=== PATIENT | female | born 1965 | race Hispanic/Latino ===

== ENCOUNTER 2018-01-28 12:34 | Emergency (ER) | payer OTHER ==
[2018-01-28] MEDS: IBUPROFEN 800 MG TAB PO (13:45)
[2018-01-28] MEDS: NORCO, ANEXSIA 5/325MG TABLET (HYDROcodone/ACETAMINOPHEN) PO (13:46)
[2018-01-28] MEDS: METHOCARBAMOL 500 MG TAB PO (13:46)
== END 2018-01-28 14:49 | disposition home or self-care (01) ==
LOC: M ED 12:34
DX: M54.42 Lumbago with sciatica, left side (principal)
CPT/HCPCS: 72110

== ENCOUNTER 2018-03-18 12:29 | Outpatient (RCR) | payer BC, OTHER | END 2018-03-28 | LOC: M PT 03-24 12:30 | DX: Z47.89 Encounter for other orthopedic aftercare (principal); M51.36 Other intervertebral disc degeneration, lumbar region; M47.26 Other spondylosis with radiculopathy, lumbar region; M54.32 Sciatica, left side | CPT/HCPCS: 97010 ==

== ENCOUNTER 2018-04-02 12:57 | Outpatient (RCR) | payer BC, OTHER | END 2018-04-27 | LOC: M PT 12:57 | DX: Z47.89 Encounter for other orthopedic aftercare (principal); M51.36 Other intervertebral disc degeneration, lumbar region; M54.32 Sciatica, left side; M47.26 Other spondylosis with radiculopathy, lumbar region | CPT/HCPCS: 97010 ==

== ENCOUNTER → 2018-06-12 | Outpatient (CLI) | payer OTHER | LOC: M RAD 15:06 | DX: M51.26 Other intervertebral disc displacement, lumbar region (principal); M48.061 Spinal stenosis, lumbar region without neurogenic claudication | CPT/HCPCS: 72148 ==

== ENCOUNTER 2018-10-15 11:59 | Emergency (ER) | payer OTHER ==
[~2018-10-15] VITALS: Ht 152.4 cm; Wt 61.4 kg
[~2018-10-15 11:59] MED LIST: IBUP80TA PO; LEVO50TA5 PO; NORCOTAB PO; ROBA500T PO
[2018-10-15 12:54] LABS: BASO % 0.3 % (0.0-1.0); EOS # 0.4 10^3/uL (0.0-0.50); EOS % 6.2 % (0.0-3.0); HEMOGLOBIN 11.9 g/dl (12.0-15.5); LYMPH # 1.8 10^3/uL (1.5-4.5); LYMPH % 30.9 % (24.0-44.0); MEAN CORPUSCULAR HEMOGLOBIN 31.2 pg (27.0-33.0); MEAN CORPUSCULAR HGB CONC 32.2 g/dl (32.0-36.5); MEAN CORPUSCULAR VOLUME 96.9 fl (80.0-96.0); MONO # 0.3 10^3/uL (0.0-0.8); MONO % 5.7 % (0.0-5.0); NEUTROPHILS # 3.4 10^3/uL (1.8-7.7); NEUTROPHILS % 56.7 % (36.0-66.0); PLATELET COUNT, AUTOMATED 352 10^3/uL (150-450); RED BLOOD COUNT 3.82 10^6/uL (4.00-5.40)
[2018-10-15] MEDS ORDERED: ACETAMINOPHEN 500 MG TAB PO ONE (13:00)
[2018-10-15 13:04] LABS: INR 1.05; PROTHROMBIN TIME 13.8 SECONDS (12.1-14.4)
[2018-10-15] MEDS ORDERED: LEVALBUTEROL 1.25 MG/0.5 ML CONCENTRATE NEB NEB ONE (13:15)
[2018-10-15 13:25] LABS: ALBUMIN 4.4 GM/DL (3.2-5.2); ALT/SGPT 21 U/L (12-78); BILIRUBIN,TOTAL 0.5 MG/DL (0.2-1.0); BLOOD UREA NITROGEN 16 MG/DL (7-18); CALCIUM LEVEL 9.1 MG/DL (8.5-10.1); CARBON DIOXIDE LEVEL 25 MEQ/L (21-32); CHLORIDE LEVEL 108 MEQ/L (98-107); CPK CREATINE PHOSPHOKINASE 370 U/L (26-192); CREATININE FOR GFR 0.95 MG/DL (0.55-1.30); GLOMERULAR FILTRATION RATE > 60.0 (>51); GLUCOSE, FASTING 102 MG/DL (70-100); LIPASE 270 U/L (73-393); MB/CK RELATIVE INDEX 0.81 (< OR =4); POTASSIUM SERUM 3.9 MEQ/L (3.5-5.1); SODIUM LEVEL 140 MEQ/L (136-145); TOTAL PROTEIN 8.5 GM/DL (6.4-8.2); TROPONIN I 0.03 NG/ML (< 0.10)
[2018-10-15 13:39] LABS: INFLUENZA A AMPLIFICATION NEGATIVE (NEGATIVE); INFLUENZA B AMPLIFICATION NEGATIVE (NEGATIVE)
[2018-10-15 13:45] VITALS: BP 124/83
[2018-10-15] MEDS ORDERED: ISOVUE-370 76% 125ML VIAL (Q9967 PER ML) As Ordered ONE (13:49)
[2018-10-15 13:53] LABS: FREE T4 0.86 NG/DL (0.76-1.46)
[2018-10-15] MEDS ORDERED: MEDR4PAK PO (15:18)
[2018-10-15] MEDS ORDERED: ALBU17IN2 INH (15:18)
[2018-10-15] MEDS ORDERED: BACT800T5 PO (15:18)
--- NOTE | 2018-10-15 15:25 | REP ---
CT pulmonary angiogram: With IV contrast. History: Chest pain. Strong family history of pulmonary embolism. Comparison studies: No comparison chest imaging. Contrast dose: 75 mL of Isovue [address] technique: Helical scanning is acquired and overlapping 1.5 mm and contiguous 3 mm axial images are reformatted. In addition, maximum intensity projection and multiplanar re-formation images are generated in sagittal and coronal imaging projections. CT pulmonary angiographic findings: There is good opacification of the pulmonary arterial tree. No filling defect or vessel cutoff is seen to suggest pulmonary embolism. Maximum intensity projection and MPR images show no pulmonary arterial abnormality. The thoracic aorta enhances normally and homogeneously. There is no evidence of aneurysm or dissection. No hilar or mediastinal mass or adenopathy is seen. No pleural or significant pericardial effusion is seen. The lung windows show no evidence of pulmonary mass or significant pulmonary nodule. There are degenerative disc changes in the thoracic spine. No bony destructive lesion is appreciated. The visualized upper abdominal structures are unremarkable. Impression: Negative CT pulmonary angiogram. No CT evidence of pulmonary embolus. Electronically Signed by Jose Roberto Rose MD 10/15/2018 05:24 P
--- NOTE | 2018-10-15 21:26 | ECGEPIP ---
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
== END 2018-10-15 16:03 | disposition home or self-care (01) ==
LOC: M ED 11:59
DX: J20.9 Acute bronchitis, unspecified (principal); E89.0 Postprocedural hypothyroidism; G89.29 Other chronic pain; M54.9 Dorsalgia, unspecified; Z85.850 Personal history of malignant neoplasm of thyroid; Z79.890 Hormone replacement therapy
CPT/HCPCS: 36415; 71275; 80053; 81001; 82550; 82553; 83690; 84439; 84443; 84484; 85025; 85610; 87086; 87502; 93005; 93041; 94640; 94760; 99285; Q9967

== ENCOUNTER 2018-12-03 22:16 | Emergency (ER) | payer BC, OTHER ==
[~2018-12-03] VITALS: Ht 152.4 cm; Wt 65.2 kg
[~2018-12-03 22:16] MED LIST changes: +ALBU17IN2 INH; +BACT800T5 PO; +HYDR-3715 PO; +MEDR4PAK PO; -NORCOTAB PO
[2018-12-03] MEDS ORDERED: ASPIRIN 81 MG CHEW TABLET PO ONE (22:45)
[2018-12-03 22:46] LABS: BASO % 0.3 % (0.0-1.0); EOS # 0.3 10^3/uL (0.0-0.50); EOS % 4.1 % (0.0-3.0); HEMATOCRIT 33.4 % (36.0-47.0); LYMPH # 1.5 10^3/uL (1.5-4.5); LYMPH % 19.1 % (24.0-44.0); MEAN CORPUSCULAR HEMOGLOBIN 31.7 pg (27.0-33.0); MEAN CORPUSCULAR HGB CONC 32.9 g/dl (32.0-36.5); MEAN CORPUSCULAR VOLUME 96.3 fl (80.0-96.0); MONO # 0.4 10^3/uL (0.0-0.8); MONO % 5.1 % (0.0-5.0); NEUTROPHILS # 5.6 10^3/uL (1.8-7.7); NEUTROPHILS % 71.1 % (36.0-66.0); PLATELET COUNT, AUTOMATED 302 10^3/uL (150-450); RED BLOOD COUNT 3.47 10^6/uL (4.00-5.40); WHITE BLOOD COUNT 7.9 10^3/uL (4.0-10.0)
[2018-12-03 23:29] LABS: CALCIUM LEVEL 8.8 MG/DL (8.5-10.1); CREATININE FOR GFR 1.07 MG/DL (0.55-1.30); FREE T4 0.9 NG/DL (0.76-1.46); GLOMERULAR FILTRATION RATE 56.9 (>51); MB/CK RELATIVE INDEX 1.82 (< OR =4); POTASSIUM SERUM 3.5 MEQ/L (3.5-5.1); THYROID STIMULATING HORMONE 21.2 uIU/ML (0.358-3.740); TROPONIN I 0.1 NG/ML (< 0.10)
[2018-12-04] MEDS ORDERED: ACETAMINOPHEN TAB 650MG DOSE (2X325MG) PO ONE
[2018-12-04 00:17] VITALS: BP 128/78
--- NOTE | 2018-12-04 01:48 | REP ---
Clinical: Chest pain . Comparison: None . Findings: The mediastinum and cardiac silhouette are stable and within normal limits for portable technique. The lung bob are clear without acute consolidation, effusion, or pneumothorax. Skeletal structures are intact. Impression: No acute cardiopulmonary process appreciated. Electronically Signed by Quintin Solano MD 12/04/2018 01:40 A
--- NOTE | 2018-12-05 07:09 | ECGEPIP ---
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
== END 2018-12-04 00:18 | disposition home or self-care (01) ==
LOC: M ED 22:16 → EDBD 22:16 → M ED 12-04 00:18
DX: I47.1 Supraventricular tachycardia (principal); E03.9 Hypothyroidism, unspecified; Z79.890 Hormone replacement therapy